=== PATIENT | male | born 1985 | race Caucasian/White ===

== ENCOUNTER 2017-11-17 21:35 | Emergency (ER) | payer OTHER ==
[~2017-11-17] VITALS: Ht 167.6 cm; Wt 64.4 kg
[2017-11-17] MEDS ORDERED: LORazepam Inj 2mg/ml 1ml IV ONE ×2 (21:45→23:15)
--- NOTE | 2017-11-17 21:46 | Emergency Room Report ---
History of Present Illness General Chief Complaint: Palpitations Source: Patient Present Illness HPI This is a 32-year-old male with no past medical history. He presents with chief complaint of " I am having a heart attack." Onset about 30 minutes ago. He used methamphetamine and felt his heart beating fast and with palpitation. He attributed that to a heart attack. No nausea no vomiting. [place] short of breath. No radiation. No pain. Nothing made it better. Nothing made it worse. No exertional component. Allergies: Coded Allergies: No Known Allergies (Unverified , 11/17/17) Patient History Past Medical History: see triage record, old chart reviewed Past Surgical History: none Pertinent Family History: none Social History: Reports: drug use Immunizations: other Reviewed Nursing Documentation: PMH: Agreed, PSxH: Agreed Nursing Documentation-PMH Past Medical History: No Stated History Review of Systems Eye: Denies: eye pain, blurred vision ENT: Denies: ear pain, nose congestion, throat swelling Respiratory: Denies: cough, shortness of breath Cardiovascular: Reports: palpitations, Denies: chest pain Gastrointestinal: Denies: abdominal pain, diarrhea, nausea, vomiting Musculoskeletal: Denies: back pain, joint pain Skin: Denies: rash Neurological: Denies: headache, numbness Endocrine: Denies: increased thirst, increased urine Hematologic/Lymphatic: Denies: easy bruising All Other Systems: negative except mentioned in HPI Physical Exam Vital Signs Date Time Temp Pulse Resp B/P (MAP) Pulse Ox O2 Delivery O2 Flow Rate FiO2 11/17/17 21:40 97.5 121 20 148/81 100 Room Air vitals with tachycardia Sp02 EP Interpretation: reviewed, normal General Appearance: well appearing, no apparent distress, alert Head: normocephalic, atraumatic Eyes: bilateral eye PERRL, bilateral eye EOMI ENT: hearing grossly normal, normal pharynx Neck: full range of motion, supple, no meningismus Respiratory: chest non-tender, lungs clear, normal breath sounds Cardiovascular #1: regular rate, rhythm, no murmur, tachycardia - HR 114 Gastrointestinal: normal bowel sounds, non tender, no mass, no organomegaly, no bruit, non-distended Musculoskeletal: back normal, gait/station normal, normal range of motion Psychiatric: mood/affect normal Skin: warm/dry Medical Decision Making Diagnostic Impression: Primary Impression: Palpitations Additional Impressions: Panic attack Amphetamine abuse ER Course This sent presents with palpitation and appear to be panic attack. This it is a result from methamphetamine abuse. He was doing well but when he was about to be discharged said he doesn't feel well and heart rate went up to 140. A repeat EKG initially showed a sinus tachycardia. Gave him Ativan and now back down to the 100-110 area. Will repeat troponin and d-dimer. At this moment in time, I see no evidence of ACS, PE, dissection to name a few. If labs normal we 'll discharge home. Lab Results Impression labs unremarkable EKG Diagnostic Results Rate: tachycardiac Rhythm: NSR ST Segments: other - NSST changes Rhythm Strip Diag. Results Rhythm Strip Time: 21:46 EP Interpretation: yes Rate: 110 Rhythm: NSR, no PVC's, no ectopy Last Vital Signs Date Time Temp Pulse Resp B/P (MAP) Pulse Ox O2 Delivery O2 Flow Rate FiO2 11/17/17 21:40 97.5 121 20 148/81 100 Room Air Status: improved Disposition: HOME, SELF-CARE Condition: Stable Patient Instructions: Panic Attacks Additional Instructions: stop using drugs. Followup with your DrOrly in 7 days. Return if symptom worsen. CARLA LUONG M.D. Nov 17, 2017 21:46
[2017-11-17 21:50] VITALS: BP 148/81
[2017-11-17 22:02] LABS: BASOPHILS % (AUTO) 0.3 % (0.0-2.0); HEMATOCRIT 46.3 % (42.0-52.0); HEMOGLOBIN 14.8 G/DL (14.2-18.0); LYMPHOCYTES % (AUTO) 9.3 % (20.0-45.0); MEAN CORPUSCULAR VOLUME 89 FL (80-99); MONOCYTES % (AUTO) 2.3 % (1.0-10.0); NEUTROPHILS % (AUTO) 88.1 % (45.0-75.0); PLATELET COUNT 272 K/UL (150-450); RED BLOOD COUNT 5.18 M/UL (4.70-6.10); WHITE BLOOD COUNT 14.1 K/UL (4.8-10.8)
[2017-11-17 22:20] LABS: ANION GAP 17 mmol/L (5-15); BLOOD UREA NITROGEN 24 mg/dL (7-18); CALCIUM 9.9 MG/DL (8.5-10.1); CARBON DIOXIDE 21 MMOL/L (21-32); CHLORIDE 98 MMOL/L (98-107); CREATININE 1.2 MG/DL (0.55-1.30); POTASSIUM 3.5 MMOL/L (3.5-5.1); SODIUM 136 MMOL/L (136-145)
[2017-11-17 22:30] LABS: CKMB 4.8 NG/ML (0.0-3.6); CREATINE KINASE 368 U/L (26-308)
[2017-11-17 23:41] VITALS: BP 140/73
[2017-11-18 00:38] VITALS: BP 140/73
--- NOTE | 2017-11-18 12:37 | Cardiology Report ---
APPROVED REPORT EKG Measurement Heart [id number] Sin[address] abnormality Abnormal ECG
--- NOTE | 2017-11-18 12:38 | Cardiology Report ---
APPROVED REPORT EKG Measurement Heart [id number] [id number] Sinus tachycardia Nonspecific ST abnormality Abnormal ECG
== END 2017-11-18 00:38 | disposition home or self-care (01) ==
LOC: EMR 23:46
DX: R00.2 Palpitations (principal); F41.0 Panic disorder [episodic paroxysmal anxiety]; F15.10 Other stimulant abuse, uncomplicated
CPT/HCPCS: 36415; 80048; 82550; 82553; 84484; 85025; 85379; 93005; 96361; 96374; 96376; 99284

== ENCOUNTER 2018-04-04 19:40 | Emergency (ER) | payer OTHER ==
[~2018-04-04] VITALS: Ht 172.7 cm; Wt 66.2 kg
[~2018-04-04 19:40] MED LIST: PRISTIQ ER50 MG PO
[2018-04-04] MEDS ORDERED: Aspirin Baby 81mg ORAL ONE (20:00)
[2018-04-04 20:57] LABS: BASOPHILS % (AUTO) 0.4 % (0.0-2.0); HEMATOCRIT 44.6 % (42.0-52.0); HEMOGLOBIN 15.1 G/DL (14.2-18.0); LYMPHOCYTES % (AUTO) 13.2 % (20.0-45.0); MEAN CORPUSCULAR VOLUME 88 FL (80-99); NEUTROPHILS % (AUTO) 82.4 % (45.0-75.0); PLATELET COUNT 265 K/UL (150-450); RED BLOOD COUNT 5.06 M/UL (4.70-6.10); RED CELL DISTRIBUTION WIDTH 11.5 % (11.6-14.8); WHITE BLOOD COUNT 12.7 K/UL (4.8-10.8)
[2018-04-04 20:59] LABS: ANION GAP 17 mmol/L (5-15); BLOOD UREA NITROGEN 17 mg/dL (7-18); CALCIUM 9.7 MG/DL (8.5-10.1); CARBON DIOXIDE 22 MMOL/L (21-32); CHLORIDE 98 MMOL/L (98-107); CREATININE 1.2 MG/DL (0.55-1.30); POTASSIUM 2.9 MMOL/L (3.5-5.1); SODIUM 137 MMOL/L (136-145)
[2018-04-04 21:14] LABS: ALANINE AMINOTRANSFERASE 48 U/L (12-78); ALBUMIN 4.4 G/DL (3.4-5.0); ALBUMIN/GLOBULIN RATIO 1.1 (1.0-2.7); ALKALINE PHOSPHATASE 75 U/L (46-116); ASPARTATE AMINO TRANSFERASE 26 U/L (15-37); BILIRUBIN,TOTAL 0.4 MG/DL (0.2-1.0); CKMB 1.9 NG/ML (0.0-3.6); CREATINE KINASE 166 U/L (26-308)
--- NOTE | 2018-04-04 22:06 | Emergency Room Report ---
History of Present Illness General Chief Complaint: Palpitations Source: Patient Present Illness HPI The patient states that he was doing methamphetamine today and shortly thereafter developed palpitations and chest pressure. He continues to have the symptoms. He only drinks occasional alcohol. He denied that he had any other drugs today. He denies abdominal pain. Denies nausea or vomiting. He denies headache or neck pain. He has no other complaints. Allergies: Coded Allergies: No Known Allergies (Unverified , 11/17/17) Patient History Past Medical History: none, see triage record Past Surgical History: none Social History: Reports: alcohol use, drug use; Denies: smoking Reviewed Nursing Documentation: PMH: Agreed; PSxH: Agreed Nursing Documentation-PMH Past Medical History: No History, Except For History Of Psychiatric Problem: Yes - depression Review of Systems All Other Systems: negative except mentioned in HPI Physical Exam Vital Signs Date Time Temp Pulse Resp B/P (MAP) Pulse Ox O2 Delivery O2 Flow Rate FiO2 04/04/18 19:37 97.8 132 18 134/82 100 Room Air 97.9 Sp02 EP Interpretation: reviewed, normal General Appearance: no apparent distress, alert, GCS 15, non-toxic Head: normocephalic, atraumatic Eyes: bilateral eye normal inspection, bilateral eye PERRL ENT: hearing grossly normal, normal pharynx, no angioedema, normal voice Neck: full range of motion, supple/symm/no masses Respiratory: chest non-tender, lungs clear, normal breath sounds, no respiratory distress, no retraction, no accessory muscle use, speaking full sentences Cardiovascular #1: no edema, tachycardia Gastrointestinal: normal bowel sounds, non tender, soft, non-distended, no guarding, no rebound Rectal: deferred Musculoskeletal: back normal, gait/station normal, normal range of motion, non- tender Neurologic: alert, oriented x3, responsive, motor strength/tone normal, sensory intact, speech normal Psychiatric: judgement/insight normal, memory normal, mood/affect normal, no suicidal/homicidal ideation Skin: normal color, no rash, warm/dry, well hydrated Medical Decision Making Diagnostic Impression: Primary Impression: Palpitations Additional Impressions: Hypokalemia Amphetamine abuse ER Course This patient presents with sinus tachycardia after doing methamphetamine. This is a normal reaction to methamphetamine toxicity. Patient EKG is only pertinent for sinus tachycardia. The patient did have a low potassium at 2.9. Likely this is secondary to hyperventilation syndrome. However, I did give the patient oral potassium and educated him on a diet with increased potassium content. He indicated understanding. I considered PE, PTX, acute coronary syndrome, aortic dissection, pneumonia which is unlikely given hx, CE, CXR. Low risk PERC and Wells. Negative work- up to include Cardiac enzymes, CXR, EKG. Given history and PE I do not feel that this patient needs further evaluation at this time. The patient was instructed to follow-up closely with their PCP and close return precautions were given. Patient's educated on the dangers of amphetamine use and illicit drug use. Laboratory Tests Test 04/04/18 19:21 White Blood Count 12.7 K/UL (4.8-10.8) H Red Blood Count 5.06 M/UL (4.70-6.10) Hemoglobin 15.1 G/DL (14.2-18.0) Hematocrit 44.6 % (42.0-52.0) Mean Corpuscular Volume 88 FL (80-99) Mean Corpuscular Hemoglobin 29.9 PG (27.0-31.0) Mean Corpuscular Hemoglobin Concent 33.9 G/DL (32.0-36.0) Red Cell Distribution Width 11.5 % (11.6-14.8) L Platelet Count 265 K/UL (150-450) Mean Platelet Volume 7.1 FL (6.5-10.1) Neutrophils (%) (Auto) 82.4 % (45.0-75.0) H Lymphocytes (%) (Auto) 13.2 % (20.0-45.0) L Monocytes (%) (Auto) 4.0 % (1.0-10.0) Eosinophils (%) (Auto) 0.0 % (0.0-3.0) Basophils (%) (Auto) 0.4 % (0.0-2.0) Sodium Level 137 MMOL/L (136-145) Potassium Level 2.9 MMOL/L (3.5-5.1) L Chloride Level 98 MMOL/L (98-107) Carbon Dioxide Level 22 MMOL/L (21-32) Anion Gap 17 mmol/L (5-15) H Blood Urea Nitrogen 17 mg/dL (7-18) Creatinine 1.2 MG/DL (0.55-1.30) Estimate Glomerular Filtration Rate > 60 mL/min (>60) Glucose Level 116 MG/DL (74-106) H Calcium Level 9.7 MG/DL (8.5-10.1) Total Bilirubin 0.4 MG/DL (0.2-1.0) Aspartate Amino Transferase (AST) 26 U/L (15-37) Alanine Aminotransferase (ALT) 48 U/L (12-78) Alkaline Phosphatase 75 U/L (46-116) Total Creatine Kinase 166 U/L (26-308) Creatine Kinase MB 1.9 NG/ML (0.0-3.6) Creatine Kinase MB Relative Index 1.1 Troponin I 0.000 ng/mL (0.000-0.056) Total Protein 8.4 G/DL (6.4-8.2) H Albumin 4.4 G/DL (3.4-5.0) Globulin 4.0 g/dL Albumin/Globulin Ratio 1.1 (1.0-2.7) EKG Diagnostic Results Rate: tachycardiac Rhythm: other - S.tachycardia ST Segments: no acute changes Rhythm Strip Diag. Results EP Interpretation: yes Rate: 100's Rhythm: no PVC's, no ectopy, other - S.tachycardia Chest X-Ray Diagnostic Results Chest X-Ray Diagnostic Results : Chest X-Ray Ordered: Yes # of Views/Limited/Complete: 1 View Indication: Other - palpitations Interpretation: no consolidation, no effusion, no pneumothorax, no acute cardiopulmonary disease Impression: No acute disease Electronically Signed by: Greta Last Vital Signs Date Time Temp Pulse Resp B/P (MAP) Pulse Ox O2 Delivery O2 Flow Rate FiO2 04/04/18 19:37 97.8 132 18 134/82 100 Room Air 97.9 Status: improved Disposition: HOME, SELF-CARE Condition: Improved Referrals: ELVER SIEGEL (PCP) Patient Instructions: Palpitations LIZ PIZANO D.O. Apr 04, 2018 22:06
[2018-04-04 22:18] VITALS: BP 138/89
--- NOTE | 2018-04-05 10:31 | Diagnostic Imaging Report ---
Indication: Chest pain, tachycardia Technique: One view of the chest Comparison: none Findings: Lungs and pleural spaces are clear. Heart size is normal Impression: No acute process
--- NOTE | 2018-04-05 13:51 | Cardiology Report ---
APPROVED REPORT EKG Measurement Heart [id number] Sinus tachycardia Possible Left atrial enlargement Nonspecific ST abnormality Abnormal ECG
== END 2018-04-04 22:27 | disposition home or self-care (01) ==
LOC: EDBD 19:40 → EMR 20:00
DX: R00.2 Palpitations (principal); E87.6 Hypokalemia; F15.19 Other stimulant abuse with unspecified stimulant-induced disorder; F32.9 Major depressive disorder, single episode, unspecified
CPT/HCPCS: 36415; 71045; 80053; 82550; 82553; 84484; 85025; 93005; 96360; 96374; 96375; 99283; J8499

== ENCOUNTER 2019-05-30 08:34 | Emergency (ER) | payer OTHER ==
[~2019-05-30] VITALS: Ht 172.7 cm; Wt 60.3 kg
[~2019-05-30 08:34] MED LIST changes: +NKM; +PRESTIQ PO
[2019-05-30] MEDS ORDERED: LORazepam Inj 2mg/ml 1ml IM ONE (08:45)
[2019-05-30] MEDS ORDERED: Albuterol/Ipratropium 3ml neb HHN ONE (08:45)
--- NOTE | 2019-05-30 08:52 | NUR ---
ED Nurse Note: pt walked in due to anxiety and shortness of breathe after smoking meth happend 2 hours ago. pt connected to monitor, hr 130. pt is aox4. pt is seen by kerrie. ativan im given. will continue to monitor.
[2019-05-30 08:53] VITALS: BP 152/82
--- NOTE | 2019-05-30 08:55 | NUR ---
ED Nurse Note: supply technician on bedside
--- NOTE | 2019-05-30 08:58 | Emergency Room Report ---
History of Present Illness General Chief Complaint: Palpitations Source: Patient Present Illness HPI Patient is a 34-year-old male who reports having increased palpitations. He reports of increased shortness of breath. He had recently done crystal meth. Patient states he been using last night multiple times. He reports last use approximately 2 hours prior to arrival. He denies any fever. He reports having some difficulty with respirations. He had not been having any prior history of medical problems. He denies any prior cardiac history. Allergies: Coded Allergies: No Known Allergies (Unverified , 11/17/17) Patient History Past Medical History: see triage record Reviewed Nursing Documentation: PMH: Agreed; PSxH: Agreed Nursing Documentation-PMH Past Medical History: No Stated History Review of Systems All Other Systems: negative except mentioned in HPI Physical Exam Vital Signs Date Time Temp Pulse Resp B/P (MAP) Pulse Ox O2 Delivery O2 Flow Rate FiO2 05/30/19 08:39 98.2 130 26 151/89 (109) 100 Room Air Sp02 EP Interpretation: reviewed, normal General Appearance: normal inspection, well appearing, no apparent distress, alert, GCS 15 Head: atraumatic ENT: normal ENT inspection, hearing grossly normal, normal voice Neck: normal inspection, full range of motion, supple, no bony tend Respiratory: normal inspection, normal breath sounds, no respiratory distress, no retraction, wheezing - slight Cardiovascular #1: no edema, tachycardia Gastrointestinal: normal inspection, normal bowel sounds, non tender, soft, no guarding, no hernia Genitourinary: no CVA tenderness Musculoskeletal: normal inspection, back normal, normal range of motion Neurologic: normal inspection, alert, oriented x3, responsive, 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 Differential diagnosis include was not limited to arrhythmia, congestive heart failure, stimulant abuse among others. EKG showed sinus tachycardia without acute ST or T wave changes. Patient was noted to have some bronchospasm and was given breathing treatment. Patient was given IM Ativan with improvement of symptoms. Patient was observed in the emergency department was noted to Have normal blood pressure.Have improvement in patient had improvement in his bronchospasm after breathing treatment. He was noted to have some slight increase in his heart rate after medications. Patient was observed in the emergency department was noted to have improvement. Patient will be discharged home. He was advised to follow-up with his primary care physician for recheck. Patient was advised that his symptoms are likely related to drug use and that he should discontinue using methamphetamine. Patient is advised to return if he felt worse. EKG Diagnostic Results Rate: tachycardiac Last Vital Signs Date Time Temp Pulse Resp B/P (MAP) Pulse Ox O2 Delivery O2 Flow Rate FiO2 05/30/19 08:39 98.2 130 26 151/89 (109) 100 Room Air Status: improved Disposition: HOME, SELF-CARE Condition: Stable Scripts Albuterol Sulfate* (ALBUTEROL SULFATE MDI*) 8.5 Gm Hfa.aer.ad 2 PUFF INH Q6H, #1 EA 0 Refills Prov: Chuckie Santos MD 05/30/19 Referrals: NOT CHOSEN [facility]/,REFERRING (PCP) Chuckie Santos MD May 30, 2019 08:58
[2019-05-30] MEDS ORDERED: ALBUTEROL SULF8.5 GM INH (09:15)
[2019-05-30 10:53] VITALS: BP 133/84
--- NOTE | 2019-05-30 10:53 | NUR ---
ER DISCHARGE NOTE: Patient is cleared to be discharged per ERMD, pt is aox4, on room air, with stable vital signs. pt was given dc and prescription instructions, pt was able to verbalize understanding, pt id band removed without complications. pt is able to ambulate with steady gait. pt took all belongings.
--- NOTE | 2019-06-03 14:59 | Cardiology Report ---
APPROVED REPORT EKG Measurement Heart [id number] AK 128P82 [id number] Sin[address] abnormality Abnormal ECG
== END 2019-05-30 10:53 | disposition home or self-care (01) ==
LOC: EMR 08:50
DX: F19.10 Other psychoactive substance abuse, uncomplicated (principal); J98.01 Acute bronchospasm
CPT/HCPCS: 93005; 94640; 94664; 96372; 99283; J7620

== ENCOUNTER 2020-11-01 00:05 | Emergency (ER) | payer OTHER ==
[~2020-11-01] VITALS: Ht 175.3 cm; Wt 81.6 kg
[~2020-11-01 00:05] MED LIST changes: +ALBUTEROL SULF8.5 GM INH
--- NOTE | 2020-11-01 00:38 | Emergency Room Report ---
History of Present Illness General Chief Complaint: Substance Abuse Source: Patient Present Illness HPI This a 35-year-old male with a history of substance abuse. He presents with chief complaint of palpitation shortness of breath. Patient said that he has been doing methamphetamine and using GHB for last few hours. He presents with chief complaint of palpitation. Said his heart is beating fast. He said he felt short of breath. Similar symptom in the past. Not suicidal or homicidal. No chest pain per se. He said that he felt like he cannot take a deep breath. He was seen in the past for the same symptoms. Allergies: Coded Allergies: No Known Allergies (Unverified , 11/17/17) COVID-19 Screening Contact w/high risk pt: No Experienced COVID-19 symptoms?: No COVID-19 Testing performed MANAGER BANQUET: No COVID-19 Screening: Negative COVID-19 Patient History Past Medical History: see triage record, old chart reviewed Pertinent Family History: none Social History: Reports: drug use Immunizations: other Reviewed Nursing Documentation: PMH: Agreed; PSxH: Agreed Nursing Documentation-PMH Past Medical History Deferred: Patient Unconscious Past Medical History: No Stated History Review of Systems Eye: Denies: eye pain, blurred vision ENT: Denies: ear pain, nose congestion, throat swelling Respiratory: Reports: shortness of breath; Denies: cough Cardiovascular: Reports: palpitations; Denies: chest pain Gastrointestinal: Denies: abdominal pain, diarrhea, nausea, vomiting Musculoskeletal: Denies: back pain, joint pain Skin: Denies: rash Neurological: Denies: headache, numbness Endocrine: Denies: increased thirst, increased urine Hematologic/Lymphatic: Denies: easy bruising All Other Systems: negative except mentioned in HPI Physical Exam Vital Signs Date Time Temp Pulse Resp B/P (MAP) Pulse Ox O2 Delivery O2 Flow Rate FiO2 11/01/20 00:16 98.1 140 36 153/115 (128) 100 Room Air Vitals with tachycardia and high blood pressure Sp02 EP Interpretation: reviewed, normal General Appearance: well appearing, no apparent distress, alert Head: normocephalic, atraumatic Eyes: bilateral eye PERRL, bilateral eye EOMI ENT: hearing grossly normal, normal pharynx Neck: full range of motion, supple, no meningismus Respiratory: chest non-tender, lungs clear, normal breath sounds Cardiovascular #1: regular rate, rhythm, no murmur, tachycardia Gastrointestinal: normal bowel sounds, non tender, no mass, no organomegaly, no bruit, non-distended Musculoskeletal: back normal, normal range of motion, gait/station normal Psychiatric: anxious Medical Decision Making Diagnostic Impression: Primary Impression: Substance abuse Additional Impression: Palpitations ER Course This patient presents with palpitation. This is tachycardia induced by his drug abuse. Is also very anxious and keep on grunting. He said that helped him breathe better. No evidence of ACS, PE, dissection to name a few. Better after Ativan. Last Vital Signs Date Time Temp Pulse Resp B/P (MAP) Pulse Ox O2 Delivery O2 Flow Rate FiO2 11/01/20 00:16 98.1 140 36 153/115 (128) 100 Room Air Status: improved Disposition: HOME, SELF-CARE Condition: Stable Patient Instructions: Stimulant Use Disorder-Methamphetamines Additional Instructions: Abstain from drugs and alcohol. Follow-up with your doctor in 7 days. Return if worse. Christofer Leiva MD Nov 01, 2020 00:38
[2020-11-01 00:40] VITALS: BP 146/98
[2020-11-01] MEDS: LORazepam Inj 2mg/ml 1ml IV ONE (00:43)
--- NOTE | 2020-11-01 00:45 | NUR ---
ED Nurse Note: Pt walked in to the ed due to anxiety becuase of substance use. Pt stated; he used meth and GHB x 4hr ago. pt is on monitor; HR 136 O2 97 RR 19 Bp 142/75. pt is anxious and restlessness. Denied sob. Iv started; blood drawn and sent to lab
[2020-11-01 01:12] LABS: ANION GAP 16 mmol/L (5-15); BLOOD UREA NITROGEN 14 mg/dL (7-18); CALCIUM 10.3 MG/DL (8.5-10.1); CARBON DIOXIDE 22 MMOL/L (21-32); CHLORIDE 99 MMOL/L (98-107); CREATININE 1.2 MG/DL (0.55-1.30); POTASSIUM 3.4 MMOL/L (3.5-5.1); SODIUM 137 MMOL/L (136-145)
[2020-11-01 01:18] LABS: BASOPHILS % (AUTO) 0.8 % (0.0-2.0); EOSINOPHILS % (AUTO) 0.4 % (0.0-3.0); HEMATOCRIT 44.9 % (42.0-52.0); LYMPHOCYTES % (AUTO) 21.8 % (20.0-45.0); MEAN CORPUSCULAR VOLUME 83 FL (80-99); MONOCYTES % (AUTO) 5.5 % (1.0-10.0); NEUTROPHILS % (AUTO) 71.5 % (45.0-75.0); PLATELET COUNT 294 K/UL (150-450); RED BLOOD COUNT 5.43 M/UL (4.70-6.10); RED CELL DISTRIBUTION WIDTH 13.8 % (11.6-14.8); WHITE BLOOD COUNT 16.8 K/UL (4.8-10.8)
[2020-11-01 01:27] LABS: CKMB 13.3 NG/ML (0.0-3.6); CREATINE KINASE 686 U/L (26-308)
--- NOTE | 2020-11-01 02:15 | NUR ---
ER DISCHARGE NOTE: Patient is cleared to be discharged per ERMD, pt is aox4, on room air, with stable vital signs. pt was given dc instructions, pt was able to verbalize understanding, pt id band and iv site removed without complications. pt is able to ambulate with steady gait. pt took all belongings.
[2020-11-01 02:25] VITALS: BP 132/78
== END 2020-11-01 02:15 | disposition home or self-care (01) ==
LOC: EMR 00:26
DX: F15.10 Other stimulant abuse, uncomplicated (principal); F19.10 Other psychoactive substance abuse, uncomplicated; R00.2 Palpitations
CPT/HCPCS: 36415; 80048; 82550; 82553; 84484; 85025; 96361; 96374; 99284

== ENCOUNTER 2020-11-01 06:42 | Emergency (ER) | payer OTHER ==
[~2020-11-01] VITALS: Ht 170.2 cm; Wt 70.8 kg
[2020-11-01 06:54] VITALS: BP 128/75
--- NOTE | 2020-11-01 06:54 | NUR ---
ED Nurse Note: Pt walked into ED from home said he woke up and heart was racing HR 140s using iphone sunshine. Pt was seen at [facility] earlier today after using meth and was discharged home. Pt denies substance use after discharge. Upon admission, pt is AAOx4, breathing even and unlabored, able to speak in complete sentences.
[2020-11-01] MEDS ORDERED: LORazepam 1mg tab ONE (07:13)
[2020-11-01] MEDS: LORazepam 1mg tab ORAL ONE (07:15)
--- NOTE | 2020-11-01 07:25 | Emergency Room Report ---
History of Present Illness General Chief Complaint: Palpitations Source: Patient Present Illness HPI Disclaimer: Please note that this report is being documented using [employer] technology. This can lead to erroneous entry secondary to incorrect interpretation by the dictating instrument. HPI: 35-year-old male history of methamphetamine abuse presents for palpitations. He was seen last night for the same. At that time he did have laboratory studies. Noted mild elevation in CK. Troponin negative. Was given Ativan and discharged home. He states he was able to take a nap at home but woke up feeling palpitations again. And presented back to the ER. Also feeling anxious. Denies any fever nausea vomiting or chest pain. Allergies: Coded Allergies: No Known Allergies (Unverified , 11/17/17) COVID-19 Screening Contact w/high risk pt: No Experienced COVID-19 symptoms?: No COVID-19 Testing performed SUPERVISOR MAINTENANCE: No Patient History Reviewed Nursing Documentation: PMH: Agreed; PSxH: Agreed Nursing Documentation-PMH Past Medical History: No Stated History Review of Systems All Other Systems: negative except mentioned in HPI Physical Exam Vital Signs Date Time Temp Pulse Resp B/P (MAP) Pulse Ox O2 Delivery O2 Flow Rate FiO2 11/01/20 06:42 98.1 127 25 114/60 (78) 99 Room Air Sp02 EP Interpretation: reviewed, normal General Appearance: well appearing, other - Anxious appearing Head: normocephalic, atraumatic Eyes: bilateral eye PERRL, bilateral eye EOMI ENT: hearing grossly normal, moist mucus membranes Neck: full range of motion, supple Respiratory: lungs clear, normal breath sounds, no rhonchi, no respiratory distress, no retraction, no wheezing Cardiovascular #1: normal peripheral pulses, no murmur, tachycardia Gastrointestinal: non tender, soft, non-distended, no guarding Neurologic: alert, oriented x3, no focal defects Skin: normal color, warm/dry Medical Decision Making Diagnostic Impression: Primary Impression: Palpitations Additional Impressions: Methamphetamine abuse Anxiety ER Course MDM: Differential included but not limited to substance abuse, anxiety, palpitations. Patient was tachycardic on arrival but otherwise in no acute distress not hypoxic and afebrile. He did use methamphetamine yesterday. I do suspect his tachycardia was secondary to his methamphetamine abuse. EKG showed sinus tachycardia. Low suspicion for ACS at this time. Patient was given Ativan. Was observed in the emergency room. Vital signs improved. No evidence of hypoxia. Patient in no acute distress. I did recommend cessation from methamphetamine abuse. At this time patient stable for discharge. Follow-up with PMD. EKG Diagnostic Results Rate: tachycardiac Rhythm: other - Sinus tachycardia ST Segments: no acute changes Other Impression Sinus tachycardia Last Vital Signs Date Time Temp Pulse Resp B/P (MAP) Pulse Ox O2 Delivery O2 Flow Rate FiO2 11/01/20 07:15 126 26 127/81 100 11/01/20 06:54 98.1 Room Air Status: improved Disposition: HOME, SELF-CARE Condition: Improved Yohannes Barger M.D. Nov 01, 2020 07:25
--- NOTE | 2020-11-01 07:31 | NUR ---
HAND-OFF: Report given to JENI Restrepo.
[2020-11-01 08:40] VITALS: BP 132/70
--- NOTE | 2020-11-01 08:40 | NUR ---
ER DISCHARGE NOTE: Patient is cleared to be discharged per ERMD, pt is aox4, on room air, with stable vital signs. pt was given dc instructions, pt was able to verbalize understanding, pt id band removed. pt is able to ambulate with steady gait. pt took all belongings.
== END 2020-11-01 08:40 | disposition home or self-care (01) ==
LOC: EMR 07:01
DX: R00.2 Palpitations (principal); F41.9 Anxiety disorder, unspecified; F15.10 Other stimulant abuse, uncomplicated
CPT/HCPCS: 99282